=== PATIENT | female | born 1945 | race Caucasian/White ===

== ENCOUNTER 2021-01-09 06:57 | Day surgery (SDC) | payer MEDICARE, BC ==
[2021-01-09] MEDS ORDERED: Sodium Chloride 0.9% 1,000 ML IV SCH (07:00)
[2021-01-09] MEDS ORDERED: Midazolam 1 MG/ML 2 ML SDV ONE (07:28)
[2021-01-09] MEDS ORDERED: Propofol 200 MG/20 ML SDV ONE ×2 (07:28→08:53)
[2021-01-09] MEDS ORDERED: fentaNYL 100 MCG/2 ML SDV ONE (07:28)
--- NOTE | 2021-01-12 07:57 | OR ---
DATE OF PROCEDURE: 01/09/2021 SURGEON: Jerome Mart MD PROCEDURE: Colonoscopy. FINDINGS: Incomplete colonoscopy due to tortuosity of sigmoid colon. COMPLICATIONS: None. IN FLIGHT REFUELING MANAGER: None. ANESTHESIA: MAC. PROCEDURE IN DETAIL: The patient was placed in left lateral decubitus position. Digital rectal exam was performed without any abnormality. Scope was introduced and advanced. The patient had a significantly tortuous sigmoid colon, associated with diverticulosis. Despite multiple attempts, this was not able to be transversed. At no time was the scope blindly advanced nor was undue pressure ever placed during this process. No other abnormalities noted. The patient tolerated the procedure well. The patient will be sent for a repeat colonoscopy. Jerome Mart MD /[id number]
== END 2021-01-09 10:40 | disposition home or self-care (01) ==
LOC: JP.SDS 06:57
PROVIDERS: ATTEND Surgery
DX: Z12.11 Encounter for screening for malignant neoplasm of colon (principal); K57.30 Diverticulosis of large intestine without perforation or abscess without bleeding; I10 Essential (primary) hypertension; E11.9 Type 2 diabetes mellitus without complications; E03.9 Hypothyroidism, unspecified
CPT/HCPCS: G0104; J2250; J2704; J3010

== ENCOUNTER 2024-04-10 09:56 | Inpatient (IN) | payer MEDICARE, BC ==
[2024-04-10 11:33] LABS: BASE EXCESS VENOUS 1.9 mm/L; BICARBONATE,VENOUS 26.3 mmol/L; CARBOXYHEMOGLOBIN 2.6 % (0.0-1.6); METHEMOGLOBIN 0.8 %; O2 SATURATION VENOUS 49.2; OXYHEMOGLOBIN 47.5 %; PCO2 VENOUS 42.7 mm/Hg; PH,VENOUS 7.407 (7.350-7.450); TOTAL HEMOGLOBIN 12.2 g/dL (12.0-16.0)
[2024-04-10 11:36] LABS: BASOPHILS ABSOLUTE AUTO 0.04 K/uL (0.00-0.10); BASOPHILS PERCENT AUTO 0.4 % (0.1-1.3); EOSINOPHILS ABSOLUTE AUTO 0.06 K/uL (0.00-0.40); EOSINOPHILS PERCENT AUTO 0.5 % (0.0-5.4); HEMATOCRIT 34.2 % (34.3-46.0); HEMOGLOBIN 11.6 g/dL (11.2-15.5); IMMATURE GRAN ABSOLUTE AUTO 0.07 K/uL (0.00-0.23); IMMATURE GRAN PERCENT AUTO 0.6 % (0.0-0.7); LYMPHOCYTES ABSOLUTE AUTO 3.03 K/uL (0.8-3.3); MEAN CORPUSCULAR HGB CONC 33.9 g/dL (31.6-35.5); MEAN CORPUSCULAR VOLUME 85.5 fL (81.4-99.0); MONOCYTES ABSOLUTE AUTO 0.93 K/uL (0.20-0.90); MONOCYTES PERCENT AUTO 8.3 % (3.3-12.6); NEUTROPHILS ABSOLUTE AUTO 7.11 K/uL (1.0-7.6); NEUTROPHILS PERCENT AUTO 63.2 % (40.0-78.1); PLATELET COUNT,PLT 220 K/uL (130-375); WHITE BLOOD CELL COUNT,WBC 11.2 K/uL (3.2-11.0)
[2024-04-10 11:39] LABS: PO2 VENOUS 29.3 mm/Hg
[2024-04-10 11:48] LABS: INR 1.1; PROTHROMBIN TIME 10.9 sec (9.2-10.6)
[2024-04-10 12:05] LABS: ALANINE AMINOTRANSFERASE,ALT 25 U/L (12-78); ALBUMIN 3.3 g/dL (3.4-5.0); ALKALINE PHOSPHATASE 87 U/L (46-116); ASPARTATE AMNIOTRANSFERASE,AST 22 U/L (15-37); BILIRUBIN TOTAL 0.5 mg/dL (0.2-1.0); BLOOD UREA NITROGEN,BUN 21 mg/dL (7-18); CALCIUM 9.4 mg/dL (8.5-10.1); CARBON DIOXIDE,CO2 27 mmol/L (21-32); CHLORIDE,CL 98 mmol/L (100-108); CREATININE 1.2 mg/dL (0.6-1.0); EST CRCL DRUG DOSING (CG) 40.23 mL/min; ESTIMATED GFR 47 mL/min (>60); GLUCOSE RANDOM 146 mg/dL (74-106); POTASSIUM,K 4.6 mmol/L (3.6-5.2); PROTEIN TOTAL,TP 7.2 g/dL (6.4-8.2); SODIUM,NA 134 mmol/L (140-148)
[2024-04-10 12:08] LABS: A/G RATIO 0.9 (1.2-2.2); ANION GAP 13.6 mmol/L (5.0-14.0)
[2024-04-10 12:15] LABS: CORONAVIRUS COVID-19 NAA NEGATIVE (NEGATIVE); INFLUENZA A NAA NEGATIVE (NEGATIVE); INFLUENZA B NAA NEGATIVE (NEGATIVE); RESPIRATORY SYNCYTIAL VIR NAA NEGATIVE (NEGATIVE)
[2024-04-10] MEDS ORDERED: Sodium Chloride 0.9% 10 ML Syringe FLUSH PRN (12:48)
[2024-04-10] MEDS: Sodium Chloride 0.9% 1,000 ML IV ONE (12:50)
[2024-04-10 14:29] LABS: APPEARANCE,URINE CLOUDY (CLEAR); BILIRUBIN,URINE NEGATIVE (NEGATIVE); COLOR,URINE YELLOW (YELLOW); GLUCOSE,URINE NEGATIVE (NEGATIVE); KETONES,URINE NEGATIVE (NEGATIVE); LEUKOCYTE ESTERASE,URINE MODERATE (NEGATIVE); NITRITE,URINE POSITIVE (NEGATIVE); OCCULT BLOOD,URINE TRACE-INTACT (NEGATIVE); PH,URINE 7.5 (5.0-8.0); PROTEIN,URINE 30 mg/dL (NEGATIVE); UROBILINOGEN,URINE 0.2 EU/dL (0.2-1.0)
[2024-04-10 14:40] LABS: AMPHETAMINES SCREEN, URINE NEGATIVE (NEGATIVE); BARBITURATE SCREEN,URINE NEGATIVE (NEGATIVE); BENZODIAZEPINES SCREEN,URINE NEGATIVE (NEGATIVE); METHADONE SCREEN, URINE NEGATIVE (NEGATIVE); METHAMPHETAMINES SCREEN, URINE NEGATIVE (NEGATIVE); OXYCODONE SCREEN,URINE NEGATIVE (NEGATIVE); PROPOXYPHENE SCREEN,URINE NEGATIVE (NEGATIVE); THC SCREEN,URINE 50 NG/ML NEGATIVE (NEGATIVE)
[2024-04-10 14:43] LABS: RBC,URINE 0-5 (0-5)
[2024-04-10 14:44] LABS: AMORPHOUS SEDIMENT,URINE NOT SEEN; BACTERIA,URINE MANY; EPITHELIAL CELLS,URINE RARE; MUCUS,URINE NOT SEEN; WBC,URINE 30-40 (0-5)
[2024-04-10] MEDS: Sodium Chloride 0.9% 100 ML IV SCH (15:36)
[2024-04-10] MEDS: Iopamidol 755 Mg/ML 100 ML Bottle IV SCH (15:36)
[2024-04-10] MEDS: cefTRIAXone 1 GM in Sodium Chloride 0.9% 50 ML IV ONE (16:51)
[2024-04-10] MEDS: Sodium Chloride 0.9% 1,000 ML IV SCH ×2 (16:51→23:54)
[2024-04-10] MEDS ORDERED: Ondansetron 4 MG Tab.DIS PO PRN (17:04)
[2024-04-10] MEDS ORDERED: Cyclobenzaprine 10 MG Tab PO PRN (17:04)
[2024-04-10] MEDS ORDERED: Ondansetron 4 MG/2 ML SDV IV PRN (17:04)
[2024-04-10] MEDS ORDERED: Magnesium Hydroxide 400 MG/5 ML Susp 30 ML Cup PO PRN (17:04)
[2024-04-10] MEDS ORDERED: Sennosides/Docusate Sodium 50-8.6 MG Tab PO PRN (17:04)
[2024-04-10] MEDS: metFORMIN 500 MG Tab PO SCH (17:32)
[2024-04-10] MEDS: Insulin Lispro 100 Unit/ML 3 ML KwikPen SUBCUT SCH (17:35)
[2024-04-10] MEDS: Lactobacillus Rhamnosus GG (Probiotic) Cap PO SCH (20:46)
[2024-04-10] MEDS: Melatonin 3 MG Tab PO SCH (20:46)
[2024-04-10] MEDS: Calcium Carbonate 500 MG Tab.Chew PO SCH (20:46)
[2024-04-10] MEDS: Aspirin 325 MG Tab.EC PO SCH (20:46)
[2024-04-10] MEDS: Pravastatin 20 MG Tab PO SCH (20:46)
[2024-04-11] MEDS: Diltiazem 25 MG/5 ML SDV IVPUSH ONE ×2 (05:36→05:39)
[2024-04-11 05:56] LABS: HEMATOCRIT 31.2 % (34.3-46.0); HEMOGLOBIN 10.8 g/dL (11.2-15.5); MEAN CORPUSCULAR HEMOGLOBIN 29.4 pg (31.6-35.5); MEAN CORPUSCULAR HGB CONC 34.6 g/dL (31.6-35.5); RED BLOOD CELL COUNT 3.67 M/uL (3.77-5.24); WHITE BLOOD CELL COUNT,WBC 10.3 K/uL (3.2-11.0)
[2024-04-11 06:10] LABS: CALCIUM 8.9 mg/dL (8.5-10.1); EST CRCL DRUG DOSING (CG) 48.28 mL/min; POTASSIUM,K 4.7 mmol/L (3.6-5.2)
[2024-04-11 06:13] LABS: ANION GAP 12.7 mmol/L (5.0-14.0)
[2024-04-11] MEDS: Metoprolol Tartrate 50 MG Tab PO ONE (06:22)
[2024-04-11] MEDS: Anastrozole 1 MG Tab PO SCH (07:59)
[2024-04-11] MEDS: Escitalopram 10 MG Tab PO SCH (08:03)
[2024-04-11] MEDS: Insulin Glargine,Human Rec. Analog 100 Units/ML 3 ML Pen SUBCUT SCH (08:05)
[2024-04-11] MEDS ORDERED: Lisinopril 10 MG Tab PO SCH (09:00)
[2024-04-11] MEDS: Diltiazem IR 30 MG Tab PO SCH ×2 (09:02→16:41)
[2024-04-11] MEDS: Metoprolol Tartrate 25 MG Tab PO ONE (11:39)
[2024-04-11] MEDS: cefTRIAXone 1 GM in Sodium Chloride 0.9% 50 ML IV SCH (16:53)
[2024-04-11] MEDS: Metoprolol Tartrate 50 MG Tab PO SCH (20:32)
[2024-04-12] MEDS: Insulin Glargine,Human Rec. Analog 100 Units/ML 3 ML Pen SUBCUT SCH (08:45)
[2024-04-12] MEDS: Cephalexin 250 MG Cap PO SCH (11:04)
[2024-04-12] MEDS: Insulin Lispro 100 Unit/ML 3 ML KwikPen SUBCUT SCH (17:04)
[2024-04-12] MEDS: Metoprolol Succinate 50 MG Tab.ER PO SCH (21:21)
[2024-04-13] MEDS: Acetaminophen 325 MG Tab PO PRN (07:38)
== END 2024-04-13 12:09 | disposition home or self-care (01) | DRG 65 ==
LOC: JP.ED 09:56 → JP.MS 16:24
PROVIDERS: ADMIT Internal Medicine; ATTEND Internal Medicine
PROC: 4A033R1 Measurement of Arterial Saturation, Peripheral, Percutaneous Approach (ICD-10-PCS; principal; 2024-04-10)
DX: I63.9 Cerebral infarction, unspecified (principal); N30.00 Acute cystitis without hematuria; J18.9 Pneumonia, unspecified organism; E11.9 Type 2 diabetes mellitus without complications; E86.0 Dehydration; Z79.4 Long term (current) use of insulin; I10 Essential (primary) hypertension; Z79.84 Long term (current) use of oral hypoglycemic drugs; M81.0 Age-related osteoporosis without current pathological fracture; F41.9 Anxiety disorder, unspecified; F32.A Depression, unspecified; I48.0 Paroxysmal atrial fibrillation; Z79.82 Long term (current) use of aspirin; Z79.899 Other long term (current) drug therapy; Z87.19 Personal history of other diseases of the digestive system; Z85.3 Personal history of malignant neoplasm of breast; Z90.89 Acquired absence of other organs; Z98.51 Tubal ligation status; Z98.49 Cataract extraction status, unspecified eye; Z98.890 Other specified postprocedural states; Z90.10 Acquired absence of unspecified breast and nipple
CPT/HCPCS: 0241U; 36415; 70450; 71045; 71275; 80048; 80053; 80061; 80305; 80307; 81001; 82803; 82947; 83605; 84145; 84484; 85025; 85027; 85379; 85610; 87040; 87086; 87088; 87186; 93005; 97110; 97116; 97162; 97165; 93010; 99223; 99232; 99238; A9270-GY; J0696; J1815; J1815-GY; J3490; J7030; Q9967